=== PATIENT | male | born 2000 | race Caucasian/White ===

== ENCOUNTER 2021-01-07 00:42 | Emergency (ER) | payer BC, SELFPAY ==
[2021-01-07 00:44] VITALS: BP 137/75; PULSE 165; RESP 22; TEMP 36.9; O2SAT 98; BMI 22.9
[2021-01-07] MEDS: LORazepam 2 MG/ML Syringe 1 MG IV (01:24)
[2021-01-07] MEDS: 0.9% Normal Saline 1,000 ML 999 ML IV (01:24)
[2021-01-07] MEDS: Ondansetron 4 MG/2 ML Vial IV ×2 (01:24→04:58)
[2021-01-07] MEDS: Haloperidol Lactate 5 MG/ML Vial IV (01:24)
--- NOTE | 2021-01-07 01:56 | EDS_ITS ---
HPI History of Present Illness Chief Complaint: Substance Abuse Narrative Narrative: Patient is a 20-year-old male with no significant medical history who presents to the ER after illicit drug ingestion. Patient and friend state that this evening he drank some alcohol and then took a edible. The patient states he did this around 10 or 11 PM. He states shortly afterwards he began feeling nervous and anxious and almost as if he was going to . Friend states that this sensation and anxiety would not resolve and therefore he was brought to the hospital for evaluation. Patient does admit to the alcohol and edible but states there is no other substance present. He also states he did this to have a good time and not in order to hurt himself [facility] Medical History Hemorrhage following tonsillectomy and adenoidectomy Home Medications NK 01/07/21 [History Last Taken Unknown] Allergy/AdvReac Type Severity Reaction Status Date / Time Penicillins [PCN] AdvReac Rash Verified 01/07/21 00:43 Social History Smoking Status: Never smoker ROS ROS ED Constitutional Constitutional ED: Denies chills or fever(s) ENT ENT ED: Denies sore throat Cardiovascular Cardiovascular: Reports palpitations and racing heartbeat; Denies chest pain Respiratory/Chest Respiratory/Chest: Denies cough or dyspnea Gastrointestinal Gastrointestinal: Denies abdominal pain, diarrhea, nausea or vomiting Genitourinary Genitourinary ED: Denies dysuria Musculoskeletal Musculoskeletal: Denies myalgias Integumentary Denies rash Neurologic Neurologic: Denies headache(s) Psychiatric Psychiatric: Reports anxiety; Denies suicidal ideation or suicidal thoughts EXAM Physical Exam Const Vital Signs: 01/07/21 00:44 01/07/21 02:42 01/07/21 04:00 Temperature 98.5 F Temperature Source Temporal Pulse Rate 165 H 90 Respiratory Rate 22 H 16 16 Blood Pressure 137/75 H 118/45 L Blood Pressure Mean 95 69 Pulse Ox 98 97 Oxygen Delivery Method Room Air Positive well nourished and well developed General Appearance ED: well developed HEENT Reports moist mucous membranes Eyes EOMs intact bilaterally Eyes Narrative: Pupils are dilated and sluggish to respond with mild nystagmus noted Neck supple Resp normal respiratory effort and clear to auscultation bilaterally Cardio regular rhythm Rate: tachycardic and other Other Details: Tachycardic rate with regular rhythm GI normal to inspection, nondistended, normoactive bowel sounds, non-tender, non- distended and no masses Auscultation: normoactive bowel sounds Palpation: soft Extremity normal to inspection Neuro oriented x3 and CN's II-XII intact bilaterally Sensorium / Orientation: alert Motor Exam: strength 5/5 throughout Psych Attitude: agitated Mood & Affect: anxious Skin no rashes or lesions noted MDM MDM MDM Narrative Medical decision making narrative: Patient presented to the ER afebrile but was extremely tachycardic. He was also very nervous anxious and jittery constantly pacing across the room. His history and exam is consistent with an acute agitation reaction from his illicit drug use. I do not feel there is need for laboratory studies based on his physical exam or history but did give him fluids as well as IV Haldol and Ativan secondary to his acute agitation. The medications did work to sedate the patient and improve his vitals and reduce his symptoms. The patient was then watched in the ER for multiple hours. Vitals remained stable and parents did arrive to the ER. At this time he will be discharged in their custody so they can further monitor him for any relapse or worsening of mental status. Otherwise at this time as his vitals have improved with treatment and he is no longer having acute agitation from his illicit drug ingestion he is safe for discharge. Discharge Plan Triage Chief Complaint: Substance Abuse ED Provider: Spenser Kelly Dx/Rx/DC Orders Clinical Impression: Accidental marijuana overdose, Anxiety reaction Instructions: Understanding Synthetic Marijuana, ED Anxiety Reaction Prescriptions: No Action NK RF: 0 Referrals: [facility] Doctor,Out of [NON-STAFF] - Disposition Disposition: Home, Self Care
[2021-01-07 02:42] VITALS: BP 118/45; PULSE 90; RESP 16; O2SAT 97
[2021-01-07 04:00] VITALS: RESP 16
[2021-01-07 05:36] VITALS: BP 120/89; PULSE 92; RESP 16; O2SAT 100
== END 2021-01-07 05:36 | disposition home or self-care (01) ==
PROVIDERS: Emergency Provider Emergency Medicine
DX: T40.711A Poisoning by cannabis, accidental (unintentional), initial encounter (principal); Y92.9 Unspecified place or not applicable; F41.1 Generalized anxiety disorder
CPT/HCPCS: 96361; 96374; 96375; 96376; 99283; J7030; A4216; J2405

== ENCOUNTER 2021-12-17 20:41 | Emergency (ER) | payer BC, SELFPAY ==
[2021-12-17 20:42] VITALS: BP 144/100; PULSE 79; RESP 16; TEMP 36.3; O2SAT 99; BMI 23.7
--- NOTE | 2021-12-17 20:57 | CT_ITS ---
STUDY: CT BRAIN WITHOUT CONTRAST REASON FOR EXAM: Male, 21 years old. trauma RADIATION DOSAGE (If Supplied By Facility): CTDIvol = ( 44.99 ) mGy, DLP = ( 796.11 ) mGycm TECHNIQUE: Transaxial CT imaging of the brain was performed without administration of intravenous contrast material. Individualized dose optimization techniques were used for this CT. COMPARISON: No relevant priors. FINDINGS: Normal soft tissue structures. Normal calvarium. Normal size ventricles and extra-axial spaces for the patient''s age. Normal white matter tracts of the cerebral hemispheres. Normal basal ganglia and thalami. Normal brainstem. Normal cerebellum. There is no intracranial hemorrhage. There are no findings of an acute ischemic infarction. Normal visualized paranasal sinuses. CT/Brain/Head without Contrast IMPRESSION: Normal unenhanced CT scan of the brain. Electronically Signed: Stan De Santiago MD at 21:40 EDT ,
--- NOTE | 2021-12-17 21:00 | EX.ED.GENINJ ---
HPI History of Present Illness Chief Complaint: Head Injury Narrative Narrative: Patient sustained a head injury during football yesterday, no loss of consciousness or vomiting but today he could not concentrate on studying for his midterms at work. He has no vision changes. He does have a headache he does have some confusion. [facility] Medical History Hemorrhage following tonsillectomy and adenoidectomy Home Medications NK 12/17/21 [History Last Taken Unknown] Allergy/AdvReac Type Severity Reaction Status Date / Time Penicillins [PCN] AdvReac Rash Verified 12/17/21 20:44 Social History Smoking Status: Never smoker ROS ROS ED ROS Narrative Social: Noncontributory Medications: Reviewed Past medical history: Reviewed Review of systems General: Head injury as in HPI HEENT: No facial injury Neck: No neck pain Cardiovascular: Patient denies any chest pain or palpitations Chest wall: No chest wall contusions Respiratory: There is no shortness of breath GI: There is no nausea vomiting diarrhea or abdominal pain, no abdominal wall contusions Skin: No lacerations or abrasions Neurological: Some confusion, no focal weakness Psychiatric: No recent behavioral changes Back: No back pain, no problems with ambulation Musculoskeletal: No extremity injury All other systems are reviewed and normal EXAM Physical Exam Narrative Exam Narrative: Physical exam Vitals reviewed General: Patient appears somewhat distraught HEENT: No facial injury Head: No head injury Eyes: Extraocular movements intact Neck: No C-spine tenderness with full range of motion Heart: Regular rate normal pulses Chest wall: No chest wall pain Lungs clear lungs bilaterally with normal inspiration and expiration without tachypnea GI: Abdomen is soft and nontender there is no mass no guarding no abdominal wall contusion : Stable pelvis Musculoskeletal: Moves all extremities without any signs of trauma Skin: No abrasions or laceration Neurological: Patient is alert and oriented with no focal deficits Const Vital Signs: 12/17/21 20:42 12/17/21 20:49 Temperature 97.4 F L Temperature Source Temporal Pulse Rate 79 Respiratory Rate 16 Respiratory Effort Normal Respiratory Depth Normal Respiratory Pattern Normal Blood Pressure 144/100 H Blood Pressure Mean 114 Pulse Ox 99 Oxygen Delivery Method Room Air Room Air MDM MDM Radiography Diagnostic Testing: Clinical Impression(s) from Imaging Studies Brain CT 12/17/21 20:57 IMPRESSION: Normal unenhanced CT scan of the brain. Electronically Signed: Stan De Santiago MD at 21:40 EDT , CT head is negative I will discharge him in stable condition Discharge Plan Triage Chief Complaint: Head Injury ED Provider: Macario Jaramillo Dx/Rx/DC Orders Clinical Impression: Concussion without loss of consciousness, Acute confusion Instructions: ED Concussion Prescriptions: No Action NK Stand Alone Forms: ED Work / School Excuse Primary Care Provider: [facility] Doctor,Out of Referrals: [facility] Doctor,Out of [Primary Care Provider] - Disposition Disposition: Home, Self Care
== END 2021-12-17 22:04 | disposition home or self-care (01) ==
PROVIDERS: Emergency Provider Emergency Medicine; Visit Provider Emergency Medicine
DX: S06.0X0A Concussion without loss of consciousness, initial encounter (principal); R41.0 Disorientation, unspecified; X58.XXXA Exposure to other specified factors, initial encounter; Y93.61 Activity, american tackle football
CPT/HCPCS: 70450; 99282